=== PATIENT | male | born 1960 | race Caucasian/White ===

== ENCOUNTER 2017-11-23 14:45 | Inpatient (IN) | payer OTHER ==
[2017-11-23] MEDS ORDERED: FLEET ENEMA PR (15:15)
[2017-11-23] MEDS ORDERED: BISACODYL 10 MG SUPP PR (15:15)
[2017-11-23] MEDS ORDERED: ONDANSETRON 4 MG TAB (S0181) PO (15:15)
[2017-11-23] MEDS ORDERED: CLOBETASOL PROPIONATE EMOLLIENT 0.05% CR 60 GM TOP (15:15)
[2017-11-23] MEDS ORDERED: NITROGLYCERIN 0.4 MG SUBL TABLET SL (15:15)
[2017-11-23] MEDS: oxyCODONE 5MG TAB PO (18:19)
[2017-11-23] MEDS: ACETAMINOPHEN 325 MG TAB PO ×2 (18:20→20:27)
[2017-11-23] MEDS: glyBURIDE 2.5 MG TAB PO (18:20)
[2017-11-23] MEDS: GABAPENTIN 300 MG CAP PO (20:26)
[2017-11-23] MEDS: ATORVASTATIN 20 MG TAB PO (20:26)
[2017-11-23] MEDS: SENOKOT S TAB PO (20:26)
[2017-11-23] MEDS: CARVedilol 6.25 MG TAB PO (20:26)
[2017-11-24] MEDS: oxyCODONE 5MG TAB PO ×3 (00:27→20:22)
[2017-11-24 07:01] LABS: BASO % 0.4 % (0.0-1.0); EOS # 0.1 10^3/uL (0.0-0.50); EOS % 1.5 % (0.0-3.0); HEMOGLOBIN 10.1 g/dl (13.5-17.5); IMMATURE GRANULOCYTE % 1.3 % (0-3.0); LYMPH # 1.2 10^3/uL (1.5-4.5); LYMPH % 12.6 % (24.0-44.0); MEAN CORPUSCULAR HEMOGLOBIN 32.1 pg (27.0-33.0); MEAN CORPUSCULAR HGB CONC 33.7 g/dl (32.0-36.5); MEAN CORPUSCULAR VOLUME 95.2 fl (80.0-96.0); MONO # 0.7 10^3/uL (0.0-0.8); MONO % 7.2 % (0.0-5.0); NEUTROPHILS # 7.1 10^3/uL (1.8-7.7); PLATELET COUNT, AUTOMATED 429 10^3/uL (150-450); RED BLOOD COUNT 3.15 10^6/uL (4.30-6.10); RED CELL DISTRIBUTION WIDTH 13.7 % (11.5-14.5); WHITE BLOOD COUNT 9.3 10^3/uL (4.0-10.0)
[2017-11-24 07:24] LABS: ALBUMIN 2.5 GM/DL (3.2-5.2); ALKALINE PHOSPHATASE 102 U/L (45-117); ALT/SGPT 20 U/L (12-78); ANION GAP 7 MEQ/L (8-16); AST/SGOT 16 U/L (7-37); BILIRUBIN,TOTAL 0.8 MG/DL (0.2-1.0); BLOOD UREA NITROGEN 13 MG/DL (7-18); CALCIUM LEVEL 8.7 MG/DL (8.5-10.1); CARBON DIOXIDE LEVEL 29 MEQ/L (21-32); CHLORIDE LEVEL 102 MEQ/L (98-107); CREATININE FOR GFR 0.75 MG/DL (0.70-1.30); GLOMERULAR FILTRATION RATE > 60.0 (>56); GLUCOSE, FASTING 126 MG/DL (70-100); POTASSIUM SERUM 4.2 MEQ/L (3.5-5.1); SODIUM LEVEL 138 MEQ/L (136-145); TOTAL PROTEIN 6.7 GM/DL (6.4-8.2)
[2017-11-24] MEDS: MAGNESIUM OXIDE 400 MG TAB (MAG-OX) PO (08:30)
[2017-11-24] MEDS: ENOXAPARIN 40 MG/0.4 ML SYRINGE (J1650) SC (08:30)
[2017-11-24] MEDS: GABAPENTIN 300 MG CAP PO ×2 (08:30→20:23)
[2017-11-24] MEDS: VITAMIN D 1,000 INTERNATIONAL UNITS TABLET PO (08:31)
[2017-11-24] MEDS: LISINOPRIL 10 MG TAB PO (08:31)
[2017-11-24] MEDS: predniSONE 5 MG TAB PO (08:31)
[2017-11-24] MEDS: ACETAMINOPHEN 325 MG TAB PO ×3 (08:31→20:24)
[2017-11-24] MEDS: glyBURIDE 2.5 MG TAB PO ×2 (08:31→16:46)
[2017-11-24] MEDS: CARVedilol 6.25 MG TAB PO ×2 (08:32→20:23)
[2017-11-24] MEDS: SENOKOT S TAB PO ×2 (08:32→20:23)
[2017-11-24] MEDS: MIRALAX *UNIT DOSE* 17GM PACKET PO (08:32)
[2017-11-24] MEDS: LACTULOSE 20 GM/30 ML SYRUP UD PO (08:34)
[2017-11-24] MEDS: ATORVASTATIN 20 MG TAB PO (20:23)
[2017-11-25] MEDS: oxyCODONE 5MG TAB PO ×2 (04:21→19:26)
[2017-11-25] MEDS: GABAPENTIN 300 MG CAP PO ×2 (08:28→21:44)
[2017-11-25] MEDS: MAGNESIUM OXIDE 400 MG TAB (MAG-OX) PO (08:29)
[2017-11-25] MEDS: VITAMIN D 1,000 INTERNATIONAL UNITS TABLET PO (08:29)
[2017-11-25] MEDS: predniSONE 5 MG TAB PO (08:29)
[2017-11-25] MEDS: LISINOPRIL 10 MG TAB PO (08:29)
[2017-11-25] MEDS: glyBURIDE 2.5 MG TAB PO ×2 (08:29→16:59)
[2017-11-25] MEDS: SENOKOT S TAB PO ×2 (08:29→21:00)
[2017-11-25] MEDS: CARVedilol 6.25 MG TAB PO ×2 (08:29→21:44)
[2017-11-25] MEDS: ENOXAPARIN 40 MG/0.4 ML SYRINGE (J1650) SC (08:30)
[2017-11-25] MEDS: ACETAMINOPHEN 325 MG TAB PO ×3 (08:30→21:44)
[2017-11-25] MEDS: LACTULOSE 20 GM/30 ML SYRUP UD PO (08:32)
[2017-11-25] MEDS: MIRALAX *UNIT DOSE* 17GM PACKET PO (08:32)
[2017-11-25] MEDS: ATORVASTATIN 20 MG TAB PO (21:44)
[2017-11-26] MEDS: oxyCODONE 5MG TAB PO ×3 (06:10→21:04)
[2017-11-26 06:45] LABS: HEMATOCRIT 30.4 % (42.0-52.0); HEMOGLOBIN 10.2 g/dl (13.5-17.5); MEAN CORPUSCULAR HEMOGLOBIN 31.9 pg (27.0-33.0); MEAN CORPUSCULAR HGB CONC 33.6 g/dl (32.0-36.5); PLATELET COUNT, AUTOMATED 545 10^3/uL (150-450); RED CELL DISTRIBUTION WIDTH 13.7 % (11.5-14.5); WHITE BLOOD COUNT 9.3 10^3/uL (4.0-10.0)
[2017-11-26] MEDS: GABAPENTIN 300 MG CAP PO ×2 (08:53→20:56)
[2017-11-26] MEDS: MAGNESIUM OXIDE 400 MG TAB (MAG-OX) PO (08:53)
[2017-11-26] MEDS: VITAMIN D 1,000 INTERNATIONAL UNITS TABLET PO (08:53)
[2017-11-26] MEDS: predniSONE 5 MG TAB PO (08:53)
[2017-11-26] MEDS: glyBURIDE 2.5 MG TAB PO ×2 (08:53→18:53)
[2017-11-26] MEDS: CARVedilol 6.25 MG TAB PO ×2 (08:53→20:58)
[2017-11-26] MEDS: ACETAMINOPHEN 325 MG TAB PO ×4 (08:54→21:00)
[2017-11-26] MEDS: MIRALAX *UNIT DOSE* 17GM PACKET PO (08:54)
[2017-11-26] MEDS: ENOXAPARIN 40 MG/0.4 ML SYRINGE (J1650) SC (08:54)
[2017-11-26] MEDS: LISINOPRIL 10 MG TAB PO (08:54)
[2017-11-26] MEDS: SENOKOT S TAB PO ×2 (08:54→20:59)
[2017-11-26] MEDS: LACTULOSE 20 GM/30 ML SYRUP UD PO (08:55)
[2017-11-26] MEDS: ATORVASTATIN 20 MG TAB PO (20:56)
[2017-11-27] MEDS: oxyCODONE 5MG TAB PO ×4 (05:40→20:47)
[2017-11-27] MEDS: GABAPENTIN 300 MG CAP PO ×2 (08:15→20:42)
[2017-11-27] MEDS: ENOXAPARIN 40 MG/0.4 ML SYRINGE (J1650) SC (08:15)
[2017-11-27] MEDS: MAGNESIUM OXIDE 400 MG TAB (MAG-OX) PO (08:15)
[2017-11-27] MEDS: CARVedilol 6.25 MG TAB PO ×2 (08:16→20:43)
[2017-11-27] MEDS: predniSONE 5 MG TAB PO (08:16)
[2017-11-27] MEDS: glyBURIDE 2.5 MG TAB PO ×2 (08:16→17:19)
[2017-11-27] MEDS: LISINOPRIL 10 MG TAB PO (08:16)
[2017-11-27] MEDS: VITAMIN D 1,000 INTERNATIONAL UNITS TABLET PO (08:17)
[2017-11-27] MEDS: ACETAMINOPHEN 325 MG TAB PO ×3 (08:22→20:35)
[2017-11-27] MEDS: MIRALAX *UNIT DOSE* 17GM PACKET PO (08:22)
[2017-11-27] MEDS: SENOKOT S TAB PO ×2 (08:22→20:42)
[2017-11-27] MEDS: LACTULOSE 20 GM/30 ML SYRUP UD PO (08:22)
[2017-11-27] MEDS: ATORVASTATIN 20 MG TAB PO (20:42)
[2017-11-28] MEDS: glyBURIDE 2.5 MG TAB PO ×2 (06:46→16:56)
[2017-11-28] MEDS: oxyCODONE 5MG TAB PO ×3 (06:46→21:17)
[2017-11-28] MEDS: LACTULOSE 20 GM/30 ML SYRUP UD PO (08:03)
[2017-11-28] MEDS: predniSONE 5 MG TAB PO (08:11)
[2017-11-28] MEDS: VITAMIN D 1,000 INTERNATIONAL UNITS TABLET PO (08:11)
[2017-11-28] MEDS: CARVedilol 6.25 MG TAB PO ×2 (08:11→21:17)
[2017-11-28] MEDS: ENOXAPARIN 40 MG/0.4 ML SYRINGE (J1650) SC (08:11)
[2017-11-28] MEDS: LISINOPRIL 10 MG TAB PO (08:12)
[2017-11-28] MEDS: SENOKOT S TAB PO ×2 (08:12→21:00)
[2017-11-28] MEDS: ACETAMINOPHEN 325 MG TAB PO (08:12)
[2017-11-28] MEDS: MAGNESIUM OXIDE 400 MG TAB (MAG-OX) PO (08:12)
[2017-11-28] MEDS: GABAPENTIN 300 MG CAP PO ×2 (08:12→21:17)
[2017-11-28] MEDS: MIRALAX *UNIT DOSE* 17GM PACKET PO (08:12)
[2017-11-28] MEDS ORDERED: ACETAMINOPHEN TAB 650MG DOSE (2X325MG) PO (11:30)
[2017-11-28] MEDS: ATORVASTATIN 20 MG TAB PO (21:16)
[2017-11-29] MEDS: oxyCODONE 5MG TAB PO ×3 (06:00→20:16)
[2017-11-29 07:07] LABS: HEMATOCRIT 34.1 % (42.0-52.0); HEMOGLOBIN 11.2 g/dl (13.5-17.5); MEAN CORPUSCULAR HEMOGLOBIN 31.4 pg (27.0-33.0); MEAN CORPUSCULAR HGB CONC 32.8 g/dl (32.0-36.5); MEAN CORPUSCULAR VOLUME 95.5 fl (80.0-96.0); PLATELET COUNT, AUTOMATED 605 10^3/uL (150-450); RED BLOOD COUNT 3.57 10^6/uL (4.30-6.10); RED CELL DISTRIBUTION WIDTH 13.7 % (11.5-14.5); WHITE BLOOD COUNT 13.7 10^3/uL (4.0-10.0)
[2017-11-29] MEDS: CARVedilol 6.25 MG TAB PO ×2 (08:34→20:16)
[2017-11-29] MEDS: LISINOPRIL 10 MG TAB PO (08:34)
[2017-11-29] MEDS: GABAPENTIN 300 MG CAP PO ×2 (08:34→20:15)
[2017-11-29] MEDS: predniSONE 5 MG TAB PO (08:34)
[2017-11-29] MEDS: LACTULOSE 20 GM/30 ML SYRUP UD PO (08:34)
[2017-11-29] MEDS: ENOXAPARIN 40 MG/0.4 ML SYRINGE (J1650) SC (08:34)
[2017-11-29] MEDS: glyBURIDE 2.5 MG TAB PO ×2 (08:35→17:53)
[2017-11-29] MEDS: MIRALAX *UNIT DOSE* 17GM PACKET PO (08:35)
[2017-11-29] MEDS: VITAMIN D 1,000 INTERNATIONAL UNITS TABLET PO (08:35)
[2017-11-29] MEDS: MAGNESIUM OXIDE 400 MG TAB (MAG-OX) PO (08:35)
[2017-11-29] MEDS: SENOKOT S TAB PO ×2 (08:36→21:00)
[2017-11-29] MEDS: BISACODYL 5 MG TAB PO (15:05)
[2017-11-29] MEDS: ATORVASTATIN 20 MG TAB PO (20:15)
[2017-11-30] MEDS: oxyCODONE 5MG TAB PO (05:53)
[2017-11-30] MEDS: VITAMIN D 1,000 INTERNATIONAL UNITS TABLET PO (08:19)
[2017-11-30] MEDS: predniSONE 5 MG TAB PO (08:20)
[2017-11-30] MEDS: LISINOPRIL 10 MG TAB PO (08:20)
[2017-11-30] MEDS: MAGNESIUM OXIDE 400 MG TAB (MAG-OX) PO (08:20)
[2017-11-30] MEDS: GABAPENTIN 300 MG CAP PO (08:20)
[2017-11-30] MEDS: MIRALAX *UNIT DOSE* 17GM PACKET PO (08:21)
[2017-11-30] MEDS: glyBURIDE 2.5 MG TAB PO (08:21)
[2017-11-30] MEDS: SENOKOT S TAB PO (08:21)
[2017-11-30] MEDS: LACTULOSE 20 GM/30 ML SYRUP UD PO (08:21)
[2017-11-30] MEDS: CARVedilol 6.25 MG TAB PO (08:21)
== END 2017-11-30 13:30 | disposition home or self-care (01) | DRG 951 ==
LOC: M PM&R 14:45
DX: Z98.1 Arthrodesis status (principal); M45.3 Ankylosing spondylitis of cervicothoracic region; F17.210 Nicotine dependence, cigarettes, uncomplicated; E11.40 Type 2 diabetes mellitus with diabetic neuropathy, unspecified; I10 Essential (primary) hypertension; R53.81 Other malaise; E55.9 Vitamin D deficiency, unspecified; E78.5 Hyperlipidemia, unspecified; M54.5 Low back pain; Z95.5 Presence of coronary angioplasty implant and graft; Z79.899 Other long term (current) drug therapy

== ENCOUNTER 2019-11-25 09:28 | Emergency (ER) | payer OTHER ==
[~2019-11-25] VITALS: Ht 182.9 cm; Wt 86.4 kg
[~2019-11-25 09:28] MED LIST: ATOR40TA75 PO; Acetaminophen Tab PO; BISA10SU4 PR; CARV6.25 PO; CLOB0.0548 TOP; GABA-843 PO; GLYB5TA PO; LISI10TA4 PO; MAG400TA PO; MILK120011 PO; MM S100C PO; NITR4TASL SL; ONDA-83 PO; OXYC-517 PO; PRED5TA PO; SENN-53 PO; VITA-121 PO
[2019-11-25 10:25] LABS: BASO # 0.1 10^3/uL (0.0-0.2); BASO % 0.8 % (0.0-1.0); EOS # 0.2 10^3/uL (0.0-0.5); HEMATOCRIT 50.9 % (42.0-52.0); HEMOGLOBIN 17.4 g/dl (13.5-17.5); LYMPH # 1.2 10^3/uL (1.5-5.0); LYMPH % 12.8 % (24.0-44.0); MEAN CORPUSCULAR HEMOGLOBIN 31.3 pg (27.0-33.0); MEAN CORPUSCULAR HGB CONC 34.2 g/dl (32.0-36.5); MEAN CORPUSCULAR VOLUME 91.5 fl (80.0-96.0); MONO # 0.7 10^3/uL (0.0-0.8); MONO % 7.4 % (0.0-5.0); NEUTROPHILS # 7.1 10^3/uL (1.5-8.5); NEUTROPHILS % 76.8 % (36.0-66.0); PLATELET COUNT, AUTOMATED 209 10^3/uL (150-450); RED BLOOD COUNT 5.56 10^6/uL (4.30-6.10); WHITE BLOOD COUNT 9.2 10^3/uL (4.0-10.0)
--- NOTE | 2019-11-25 10:43 | REP ---
CHEST, SINGLE VIEW: Single view of the chest is performed and compared to a prior study 11/10/2013. There is moderate cardiomegaly. There is chronic fibrotic changes in each lung base. There is a new opacity at the right costophrenic angle which may represent fibroatelectasis or small area of infiltrate. The mediastinal silhouette is grossly unchanged. There are multiple new metallic rods and screws in the cervical and thoracic spine. Multiple sternal wires are present. Electronically Signed by Sachin Avalos MD 11/25/2019 10:45 A
[2019-11-25 11:01] LABS: ALBUMIN 3.2 GM/DL (3.2-5.2); ALT/SGPT 23 U/L (12-78); BILIRUBIN,DIRECT 0.3 MG/DL (0.0-0.2); BLOOD UREA NITROGEN 11 MG/DL (7-18); CALCIUM LEVEL 8.9 MG/DL (8.8-10.2); CARBON DIOXIDE LEVEL 31 MEQ/L (21-32); CHLORIDE LEVEL 101 MEQ/L (98-107); CK-MB VALUE MASS 2.4 NG/ML (<3.6); CPK CREATINE PHOSPHOKINASE 69 U/L (39-308); CREATININE FOR GFR 0.86 MG/DL (0.70-1.30); GLOMERULAR FILTRATION RATE > 60.0 (>49); GLUCOSE, FASTING 192 MG/DL (70-100); MB/CK RELATIVE INDEX 3.48 (< OR =4); NT-PRO BNP 601 PG/ML (<125); POTASSIUM SERUM 4.3 MEQ/L (3.5-5.1); SODIUM LEVEL 137 MEQ/L (136-145); THYROXINE (T4) 6.4 UG/DL (4.5-12.0); TOTAL PROTEIN 6.9 GM/DL (6.4-8.2); TROPONIN I < 0.02 NG/ML (< 0.10)
[2019-11-25] MEDS ORDERED: FUROSEMIDE 40MG/4ML VIAL (J1940) IV ONE (12:00)
[2019-11-25] MEDS ORDERED: ISOVUE-370 76% 100ML VIAL As Ordered ONE (12:53)
[2019-11-25] MEDS ORDERED: LASI20TA3 PO (14:10)
[2019-11-25 14:27] VITALS: BP 161/95
--- NOTE | 2019-11-25 14:28 | REP ---
CT PULMONARY ANGIOGRAM: With IV contrast. HISTORY: Pleuritic chest pain. COMPARISON STUDIES: Comparison is made with today's chest x-ray. CONTRAST DOSE: 75 mL of Isovue [address] TECHNIQUE: Helical scanning is acquired and overlapping 1.5 mm and contiguous 3 mm axial images are reformatted. In addition, maximum intensity projection and multiplanar re-formation images are generated in sagittal and coronal imaging projections. CT PULMONARY ANGIOGRAPHIC FINDINGS: There is good opacification of the pulmonary arterial tree. There is no filling defect or vessel cutoff to suggest pulmonary embolism. No evidence of aortic aneurysm or dissection is seen. Median sternotomy wires are noted. Stack stabilization rods are seen throughout the thoracic spine. There is no evidence of hilar or mediastinal mass or adenopathy. There is a small quantity of right pleural effusion and some pleural thickening is seen. There is pleural thickening on the left as well. Bibasilar atelectatic changes are noted. No focal parenchymal infiltrate is seen. There are small bullae in the apices bilaterally. Normal adrenal glands are seen bilaterally. No bony destructive lesion is observed. IMPRESSION: No CT evidence of pulmonary embolus. Small right pleural effusion. Bilateral pleural thickening and bibasilar plate-like atelectasis. Thoracic spine fusion rods and median sternotomy wires. Cardiomegaly. No acute infiltrate seen. Electronically Signed by Sheng Angulo MD 11/25/2019 03:48 P
--- NOTE | 2019-11-26 08:27 | ECGEPIP ---
[facility] - ED Test Date: 2019-11-25 Pat Name: CANDIE HENLEY Department: Room: - Gender: Male [employer]: osman : 1960 Requested By: ZEHRA VICTORIA Order Number: [id number] Reading MD: Nam Wright Measurements Intervals [place] Rate: 67 P: 33 NE: 157 QRS: -17 QRSD: 93 T: -18 QT: 381 QTc: 404 Interpretive Statements SINUS RHYTHM POSSIBLE LEFT ATRIAL ENLARGEMENT LEFT VENTRICULAR HYPERTROPHY AND ST-T CHANGE INFERIOR MYOCARDIAL INFARCTION, OF INDETERMINATE AGE NO PRIORS FOR COMPARISON Electronically Signed on 11-26-2019 8:26:49 EDT by Nam Wright
== END 2019-11-25 14:30 | disposition home or self-care (01) ==
LOC: M ED 09:28
DX: R07.89 Other chest pain (principal); I16.0 Hypertensive urgency; J90 Pleural effusion, not elsewhere classified; R05 Cough; I10 Essential (primary) hypertension; E11.9 Type 2 diabetes mellitus without complications; E78.49 Other hyperlipidemia; F17.218 Nicotine dependence, cigarettes, with other nicotine-induced disorders; Z98.61 Coronary angioplasty status; Z95.1 Presence of aortocoronary bypass graft; Z88.8 Allergy status to other drugs, medicaments and biological substances
CPT/HCPCS: 71045; 71275; 80048; 80076; 82550; 82553; 83605; 83880; 84436; 84443; 84484; 85025; 85379; 87040; 93005; 93041; 94760; 96374; 99285; J1940; Q9967; U0002

== ENCOUNTER → 2021-11-09 | Outpatient (CLI) | payer OTHER ==
[~2021-11-09] MED LIST changes: +GABA-282 PO; -GABA-843 PO; -GLYB5TA PO; +GLYB5TAB6 PO; +LASI20TA3 PO; +LISI10TA22 PO; -LISI10TA4 PO; -MAG400TA PO; +MAGN400T35 PO
== END ==
LOC: M WHC 13:21
PROVIDERS: ATTEND Family Medicine
DX: M79.662 Pain in left lower leg (principal)

== ENCOUNTER → 2023-03-22 | Outpatient (REF) | payer MEDICARE, OTHER | LOC: M SFHCDERM 08:47 | PROVIDERS: ATTEND Nurse Practitioner Family | DX: C44.319 Basal cell carcinoma of skin of other parts of face (principal) ==

== ENCOUNTER → 2023-04-27 | Outpatient (CLI) | payer MEDICARE, OTHER | LOC: M PAIN 13:00 | PROVIDERS: ATTEND Nurse Practitioner Family | DX: M96.1 Postlaminectomy syndrome, not elsewhere classified (principal); G89.29 Other chronic pain; E78.00 Pure hypercholesterolemia, unspecified; E10.9 Type 1 diabetes mellitus without complications; F17.210 Nicotine dependence, cigarettes, uncomplicated; Z95.5 Presence of coronary angioplasty implant and graft; Z79.82 Long term (current) use of aspirin; Z79.899 Other long term (current) drug therapy; Z88.1 Allergy status to other antibiotic agents; Z88.8 Allergy status to other drugs, medicaments and biological substances ==

== ENCOUNTER → 2023-05-16 | Outpatient (REF) | payer MEDICARE, OTHER | LOC: M SFHCDERM 14:07 | PROVIDERS: ATTEND Dermatology | DX: L57.0 Actinic keratosis (principal) ==

== ENCOUNTER → 2023-06-01 | Outpatient (CLI) | payer MEDICARE, OTHER | LOC: M PAIN 10:15 | PROVIDERS: ATTEND Nurse Practitioner Family | DX: M96.1 Postlaminectomy syndrome, not elsewhere classified (principal); M79.10 Myalgia, unspecified site; E78.00 Pure hypercholesterolemia, unspecified; E10.9 Type 1 diabetes mellitus without complications; Z95.5 Presence of coronary angioplasty implant and graft; F17.210 Nicotine dependence, cigarettes, uncomplicated; Z79.82 Long term (current) use of aspirin; Z79.84 Long term (current) use of oral hypoglycemic drugs; Z79.899 Other long term (current) drug therapy ==

== ENCOUNTER → 2023-08-14 | Outpatient (CLI) | payer OTHER, MEDICARE ==
[~2023-08-14] MED LIST changes: +NORCO, ANEXSIA 5/325MG TABLET (HYDROcodone/ACETAMINOPHEN) As Ordered ONE; +TRIAMCINOLONE ACETONIDE SUSP 40MG/ML 1ML VIAL As Ordered ONE; +diazePAM 5MG TABLET As Ordered ONE
== END ==
LOC: M PAIN 08:15
PROVIDERS: ATTEND Anesthesiology
DX: M79.12 Myalgia of auxiliary muscles, head and neck (principal); E78.00 Pure hypercholesterolemia, unspecified; E11.9 Type 2 diabetes mellitus without complications; Z95.5 Presence of coronary angioplasty implant and graft; F17.210 Nicotine dependence, cigarettes, uncomplicated; Z79.84 Long term (current) use of oral hypoglycemic drugs; Z79.899 Other long term (current) drug therapy; Z79.82 Long term (current) use of aspirin
CPT/HCPCS: 20553; J0665; J3301

== ENCOUNTER → 2023-09-13 | Outpatient (CLI) | payer MEDICARE, OTHER ==
[~2023-09-13] MED LIST changes: -NORCO, ANEXSIA 5/325MG TABLET (HYDROcodone/ACETAMINOPHEN) As Ordered ONE; -TRIAMCINOLONE ACETONIDE SUSP 40MG/ML 1ML VIAL As Ordered ONE; -diazePAM 5MG TABLET As Ordered ONE
== END ==
LOC: M PAIN 10:00
PROVIDERS: ATTEND Nurse Practitioner Family
DX: M96.1 Postlaminectomy syndrome, not elsewhere classified (principal); M79.10 Myalgia, unspecified site; G89.29 Other chronic pain; E78.00 Pure hypercholesterolemia, unspecified; E11.9 Type 2 diabetes mellitus without complications; Z95.5 Presence of coronary angioplasty implant and graft; F17.210 Nicotine dependence, cigarettes, uncomplicated; Z88.1 Allergy status to other antibiotic agents; Z88.8 Allergy status to other drugs, medicaments and biological substances; Z79.899 Other long term (current) drug therapy

== ENCOUNTER → 2023-12-18 | Outpatient (CLI) | payer OTHER, MEDICARE | LOC: M PAIN 11:45 | PROVIDERS: ATTEND Nurse Practitioner Family | DX: M79.12 Myalgia of auxiliary muscles, head and neck (principal); G89.29 Other chronic pain; M54.2 Cervicalgia; E78.00 Pure hypercholesterolemia, unspecified; F17.210 Nicotine dependence, cigarettes, uncomplicated; E10.9 Type 1 diabetes mellitus without complications; Z95.5 Presence of coronary angioplasty implant and graft; Z79.82 Long term (current) use of aspirin; Z79.84 Long term (current) use of oral hypoglycemic drugs; Z79.899 Other long term (current) drug therapy; Z88.1 Allergy status to other antibiotic agents; Z88.8 Allergy status to other drugs, medicaments and biological substances ==

== ENCOUNTER → 2024-02-08 | Outpatient (CLI) | payer MEDICARE, OTHER ==
[~2024-02-08] MED LIST changes: +NORCO, ANEXSIA 5/325MG TABLET (HYDROcodone/ACETAMINOPHEN) As Ordered ONE; +TRIAMCINOLONE ACETONIDE SUSP 40MG/ML 1ML VIAL As Ordered ONE; +diazePAM 5MG TABLET As Ordered ONE
== END ==
LOC: M PAIN 08:00
PROVIDERS: ATTEND Anesthesiology
DX: M79.18 Myalgia, other site (principal); M79.12 Myalgia of auxiliary muscles, head and neck; F17.210 Nicotine dependence, cigarettes, uncomplicated; E78.00 Pure hypercholesterolemia, unspecified; E10.9 Type 1 diabetes mellitus without complications; Z95.5 Presence of coronary angioplasty implant and graft; Z79.82 Long term (current) use of aspirin; Z79.899 Other long term (current) drug therapy; Z88.1 Allergy status to other antibiotic agents; Z88.8 Allergy status to other drugs, medicaments and biological substances; G89.29 Other chronic pain
CPT/HCPCS: 20553; J0665; J3301

== ENCOUNTER → 2024-03-10 | Outpatient (CLI) | payer MEDICARE, OTHER ==
[~2024-03-10] MED LIST changes: -NORCO, ANEXSIA 5/325MG TABLET (HYDROcodone/ACETAMINOPHEN) As Ordered ONE; -TRIAMCINOLONE ACETONIDE SUSP 40MG/ML 1ML VIAL As Ordered ONE; -diazePAM 5MG TABLET As Ordered ONE
== END ==
LOC: M PAIN 09:30
PROVIDERS: ATTEND Nurse Practitioner Family
DX: M79.18 Myalgia, other site (principal); G89.29 Other chronic pain; E78.00 Pure hypercholesterolemia, unspecified; E10.9 Type 1 diabetes mellitus without complications; F17.210 Nicotine dependence, cigarettes, uncomplicated; Z79.82 Long term (current) use of aspirin; Z79.84 Long term (current) use of oral hypoglycemic drugs; Z79.899 Other long term (current) drug therapy; Z88.1 Allergy status to other antibiotic agents; Z88.8 Allergy status to other drugs, medicaments and biological substances